=== PATIENT | female | born 1950 | race Caucasian/White ===

== ENCOUNTER 2021-12-26 06:30 | Day surgery (SDC) | payer MEDICARE, MEDICAID ==
[2021-12-21 14:18] LABS: CLARITY,URINE CLEAR (Clear); COLOR,URINE YELLOW (Yellow); GLUCOSE, URINE NEGATIVE (Neg); KETONES,URINE NEGATIVE (Neg); LEUKOCYTE ESTERASE ,URINE NEGATIVE (Neg); NITRITES, URINE NEGATIVE (Neg); OCCULT BLOOD,URINE NEGATIVE (Neg); PH,URINE 5.5 (4.8-8.0); PROTEIN,URINE NEGATIVE (Neg); UROBILINOGEN,URINE 0.2 E.U/dL (0.2-1.0)
[2021-12-21 14:19] LABS: BASOPHILS # (AUTO) 0.1 X10'3 (0-0.2); BASOPHILS % (AUTO) 0.9 % (0-1); EOSINOPHILS # (AUTO) 0.3 X10'3 (0-0.9); EOSINOPHILS % (AUTO) 3.9 % (0-6); LYMPHOCYTES # (AUTO) 1.6 X10'3 (1.1-4.8); LYMPHOCYTES % (AUTO) 24.7 % (21-51); MEAN CORPUSCULAR HEMOGLOBIN 29.5 PG (27.0-31.0); MEAN CORPUSCULAR HGB CONC 34.1 g/dL (33.0-36.5); MEAN CORPUSCULAR VOLUME 86.8 FL (78-98); MEAN PLATELET VOLUME 8.8 FL (7.4-10.4); MONOCYTES % (AUTO) 15.8 % (2-12); NEUTROPHILS # (AUTO) 3.6 X10'3 (1.8-7.7); NEUTROPHILS % (AUTO) 54.7 % (42-75); PRE OP HEMATOCRIT 44.3 % (35.0-45.0); PRE OP HEMOGLOBIN 15.1 g/dL (12.0-16.0); PRE OP PLATELET COUNT 207 X10'3 (140-440); RED BLOOD COUNT 5.11 X10'6 (4.20-5.60); RED CELL DISTRIBUTION WIDTH 14.1 % (11.5-14.5)
[2021-12-21 14:39] LABS: ALBUMIN 3.6 G/DL (3.4-5.0); ALBUMIN/GLOBULIN RATIO 1.1 (1.1-1.5); ALKALINE PHOSPHATASE 87 IU/L (46-116); BLOOD UREA NITROGEN 15 MG/DL (7-18); BUN/CREATININE RATIO 16.1 (6.6-38.0); CALCIUM 9.3 MG/DL (8.5-10.1); CHLORIDE 93 MMOL/L (99-107); CREATININE 0.93 MG/DL (0.40-0.90); PRE OP ALT 19 U/L (30-65); PRE OP ANION GAP 6 (8-16); PRE OP AST 22 U/L (10-37); PRE OP BILIRUB, TOTAL 0.7 MG/DL (0.0-1.0); PRE OP GLUCOSE 98 MG/DL (70-104); PRE OP POTASSIUM 4.5 MMOL/L (3.4-5.1); TOTAL CARBON DIOXIDE 30.4 MMOL/L (24-32); eGFR 59 ML/MIN
[2021-12-21 14:42] LABS: PRE OP SODIUM 129 MMOL/L (135-145)
[2021-12-21 14:49] LABS: UA COLLECTION TYPE CLN CATCH MIDSTREAM
[~2021-12-26] VITALS: Ht 172.7 cm; Wt 86.9 kg
[~2021-12-26 06:30] MED LIST: ALBU8HFA PO; AMLO2.5T2 PO; ASPI-1265 PO; CHOL10006 PO; FLUT1BLS4 PO; HYDR12.55 PO; IBUP-24 PO; LEVO100T PO; NAPR220T67 PO; OMEP40CA21 PO; albuterol 2.5 MG/3 ML nebule NEB ONE; ceFAZolin inj. 2,000 MG in dextrose 5%-water 100 ML IV ONE; famotidine 20mg tablet PO ONE; ringers solution, lacted 1,000 ML IV SCH; vancomycin 1,500 MG in NS 300ml IV soln IV ONE
[2021-12-26 07:43] LABS: ISTAT CREATININE 0.8 mg/dL (0.6-1.1); ISTAT IONIZED CALCIUM 1.23 mmol/L (1.03-1.32); ISTAT K 4.2 mmol/L (3.5-5.1); POC BUN/CREATININE RATIO 26.3 (6.6-38.0)
[2021-12-26 08:18] VITALS: BP 134/67
[2021-12-26] MEDS ORDERED: vancomycin 1,000mg inj ONE (08:19)
[2021-12-26 08:20] VITALS: BP 134/67
[2021-12-26 08:21] VITALS: BP 134/67
[2021-12-26] MEDS ORDERED: tetracaine 1% (10mg/ml) pres. free inj. ONE (08:22)
[2021-12-26] MEDS ORDERED: MIDAZolam 1mg/ml 10ml vial ONE (08:24)
[2021-12-26] MEDS ORDERED: ringers solution, lacted 1,000 ML IV SCH (08:30)
[2021-12-26] MEDS ORDERED: fentaNYL/PF 50MCG/1 ML 2ML syringe IV PRN ×2 (08:30)
[2021-12-26] MEDS ORDERED: labetalol 20mg/4ml (5mg/ml) syringe IV PRN (08:30)
[2021-12-26] MEDS ORDERED: hydrALAZINE 20mg/ml inj. IV PRN (08:30)
[2021-12-26] MEDS ORDERED: morphine 2 MG/ML inj. syringe IV PRN (08:30)
[2021-12-26] MEDS ORDERED: ondansetron/PF 4mg/2ml inj IV PRN (08:30)
[2021-12-26] MEDS ORDERED: morphine 4 MG/ML inj SYRINge IV PRN (08:30)
--- NOTE | 2021-12-27 13:47 | NUR ---
ADDENDUM NOTE. MD MORRISSEY EXAMINED RASH TO BODY OF PATIENT AND CONCLUDED THAT IT WILL BE SAFER TO HOLD SURGERY AND GET RASH ASSESSED AND ADDRESSED FIRST. SURGERY CANCELLED PER . IV TAKEN OUT WITHOUT COMPLICATION AND PATIENT SENT HOME. Addendum: 12/27/21 at 1353 by Grupo Bob RN RN Amended: Links added.
== END 2021-12-26 09:00 | disposition home or self-care (01) ==
LOC: PAS 06:30 → PAS IN 06:30 → UNDOADMIN 06:30 → EDSTATUS 08:30 → UNDODISIN 09:00 → PAS 09:00
PROVIDERS: ATTEND Orthopaedic Surgery
DX: M16.11 Unilateral primary osteoarthritis, right hip (principal); Z53.8 Procedure and treatment not carried out for other reasons; Z79.899 Other long term (current) drug therapy; J44.9 Chronic obstructive pulmonary disease, unspecified; I10 Essential (primary) hypertension; Z90.5 Acquired absence of kidney; Z98.890 Other specified postprocedural states
CPT/HCPCS: 36415; 80047; 80053; 81003; 82948; 84443; 85025; 86885; 86900; 86901; 87081; J0690; J2250; J3370; J3490; J7040; J7060; J7120

== ENCOUNTER 2022-08-07 05:34 | Inpatient (IN) | payer MEDICARE, MEDICAID ==
[2022-07-29 12:31] LABS: BASOPHILS # (AUTO) 0.1 X10'3 (0-0.2); BASOPHILS % (AUTO) 1.1 % (0-1); EOSINOPHILS # (AUTO) 0.2 X10'3 (0-0.9); EOSINOPHILS % (AUTO) 2.6 % (0-6); LYMPHOCYTES # (AUTO) 1.9 X10'3 (1.1-4.8); LYMPHOCYTES % (AUTO) 29.4 % (21-51); MEAN CORPUSCULAR HEMOGLOBIN 29.7 PG (27.0-31.0); MEAN CORPUSCULAR HGB CONC 33.5 g/dL (33.0-36.5); MEAN CORPUSCULAR VOLUME 88.6 FL (78-98); MONOCYTES # (AUTO) 0.7 X10'3 (0-0.9); MONOCYTES % (AUTO) 11.2 % (2-12); NEUTROPHILS # (AUTO) 3.6 X10'3 (1.8-7.7); NEUTROPHILS % (AUTO) 55.7 % (42-75); PRE OP HEMATOCRIT 47.9 % (35.0-45.0); PRE OP HEMOGLOBIN 16.1 g/dL (12.0-16.0); PRE OP PLATELET COUNT 181 X10'3 (140-440); RED BLOOD COUNT 5.41 X10'6 (4.20-5.60); RED CELL DISTRIBUTION WIDTH 14.2 % (11.5-14.5)
[2022-07-29 12:40] LABS: CLARITY,URINE CLEAR (Clear); COLOR,URINE YELLOW (Yellow); GLUCOSE, URINE NEGATIVE (Neg); KETONES,URINE NEGATIVE (Neg); LEUKOCYTE ESTERASE ,URINE NEGATIVE (Neg); NITRITES, URINE NEGATIVE (Neg); OCCULT BLOOD,URINE NEGATIVE (Neg); PROTEIN,URINE NEGATIVE (Neg); UROBILINOGEN,URINE 0.2 E.U/dL (0.2-1.0)
[2022-07-29 12:42] LABS: UA COLLECTION TYPE CLN CATCH MIDSTREAM
[2022-07-29 12:56] LABS: ALBUMIN 3.7 G/DL (3.4-5.0); ALBUMIN/GLOBULIN RATIO 1.1 (1.1-1.5); ALKALINE PHOSPHATASE 94 IU/L (46-116); BLOOD UREA NITROGEN 17 MG/DL (7-18); CALCIUM 9.6 MG/DL (8.5-10.1); CHLORIDE 98 MMOL/L (99-107); CREATININE 0.81 MG/DL (0.40-0.90); PRE OP ALT 14 U/L (30-65); PRE OP ANION GAP 6 (8-16); PRE OP AST 17 U/L (10-37); PRE OP BILIRUB, TOTAL 0.5 MG/DL (0.0-1.0); PRE OP GLUCOSE 98 MG/DL (70-104); PRE OP POTASSIUM 4.5 MMOL/L (3.4-5.1); PRE OP SODIUM 132 MMOL/L (135-145); TOTAL CARBON DIOXIDE 28.1 MMOL/L (24-32); TOTAL PROTEIN 7.2 G/DL (6.4-8.2); eGFR 70 ML/MIN
[~2022-08-07] VITALS: Ht 172.7 cm; Wt 81.7 kg
[2022-08-07] VITALS (21 sets, daily range): BP systolic 125–176; BP diastolic 65–87
[~2022-08-07 05:34] MED LIST changes: +ACET-1025 PO; -AMLO2.5T2 PO; +FAMO20TA8 PO; -HYDR12.55 PO; -IBUP-24 PO; -LEVO100T PO; +LEVO25TA7 PO; +OLME20TA23 PO; -OMEP40CA21 PO; -ceFAZolin inj. 2,000 MG in dextrose 5%-water 100 ML IV ONE; +cefazolin 2gm/D5W 100mL 100 ML IV ONE
[2022-08-07] MEDS ORDERED: tranexamic acid inj. 1,000 MG in normal saline 100ml IV soln 90 ML IV ONE (06:20)
[2022-08-07] MEDS ORDERED: propofol inj 20 ML IV ONE (07:33)
[2022-08-07] MEDS ORDERED: midazolam 1 mg/ML 2ml injection ONE (07:33)
[2022-08-07] MEDS ORDERED: fentaNYL /PF 50mcg/ml 5ml ampule ONE (07:33)
[2022-08-07] MEDS ORDERED: rocuronium 10mg/ml inj IV ONE (07:33)
[2022-08-07] MEDS ORDERED: vancomycin 1,000mg inj ONE (07:34)
[2022-08-07] MEDS ORDERED: meperidine/PF 25mg/ml syringe IV PRN ×3 (07:40)
[2022-08-07] MEDS ORDERED: morphine 4 MG/ML inj SYRINge IV PRN (07:40)
[2022-08-07] MEDS ORDERED: morphine 2 MG/ML inj. syringe IV PRN (07:40)
[2022-08-07] MEDS ORDERED: ringers solution, lacted 1,000 ML IV SCH (07:40)
[2022-08-07] MEDS ORDERED: ondansetron/PF 4mg/2ml inj IV PRN ×2 (07:40→11:10)
[2022-08-07] MEDS ORDERED: proCHLORperazine 10 MG/2 ml inj IV PRN (07:40)
[2022-08-07] MEDS ORDERED: sevoflurane 250ml liquid IH ONE (07:52)
[2022-08-07] MEDS ORDERED: ondansetron/PF 4mg/2ml inj ONE (10:21)
[2022-08-07] MEDS ORDERED: dexamethasone sod phosphate 4mg/ml inj. ONE (10:21)
[2022-08-07] MEDS ORDERED: acetaminophen 1,000mg/100ml IV 100 ML IV ONE (10:23)
--- NOTE | 2022-08-07 11:00 | NUR ---
Received from OR via HOSPITAL BED, accompanied by Anesthesiologist DR GONZALEZ and report given by Anesthesiologist. PT IS GROGGY, RESPONDS TO VERBAL STIMULI. PT PLACED ON BEDSIDE MONITOR, VSS. PT IS IN SR WITH RATE IN 90'S. PT IS RECEIVING 10L O2 TO MASK AND TOLERATING WELL, O2 SAT > 95%, WILL TITRATE DOWN AT PT TOLERATES. PT HAS 20G PIV TO RT HAND WITH LR INFUSING ORDERED. PT HAS DRSG TO RT HIP THAT IS CDI, LEG WRAP IS IN PLACE WITH POWDER ICE PACK. PT HAS BILAT PALPABLE DORSALIS PEDIS PULSES PRESENT. PT DID NOT RECEIVE SPINAL AND IS ABLE TO WIGGLE TOES. PT DENIES PAIN AT THIS TIME. WILL CONTINUE TO ASSESS.
[2022-08-07] MEDS ORDERED: bisacodyl 10mg suppository rectal RC PRN (11:10)
[2022-08-07] MEDS ORDERED: acetaminophen 325mg tablet PO PRN (11:10)
[2022-08-07] MEDS ORDERED: magnesium hydroxide 30ml (MOM) UD suspension PO PRN (11:10)
[2022-08-07] MEDS ORDERED: oxyCODONE IR 5mg (immed. release) tablet PO PRN (11:10)
[2022-08-07] MEDS ORDERED: HYDROmorphone inj. 0.5 MG/0.5 ML DISP.SYRIN IV PRN (11:10)
[2022-08-07] MEDS ORDERED: HYDROmorphone 1 mg/ml syringe IV PRN (11:10)
[2022-08-07] MEDS ORDERED: diphenhydrAMINE 25mg capsule PO PRN ×2 (11:10)
[2022-08-07] MEDS ORDERED: naloxone 0.4 mg/ml inj IV PRN (11:10)
--- NOTE | 2022-08-07 12:47 | NUR ---
PATIENT HAS MET ALL CRITERIA FOR TRANSFER TO THE ORTHO FLOOR. VSS. DRESSINGS INTACT. BED LOW, CALL LIGHT PRESENT AND 2 RAILS UP. NURSE PRESENT TO ACCEPT CARE OF PATIENT AND REPORT HAS BEEN CALLED TO NANCY NEW. ALL QUESTIONS ANSWERED TO ACCEPTING RN.
[2022-08-07] MEDS: oxyCODONE IR 5mg (immed. release) tablet PO PRN (13:35)
[2022-08-07] MEDS: acetaminophen 325mg tablet PO SCH ×2 (13:35→20:22)
[2022-08-07] MEDS: gabapentin 300mg capsule PO SCH ×2 (13:35→20:22)
[2022-08-07] MEDS ORDERED: tranexamic acid inj. 820 MG in normal saline 100ml IV soln 91.8 ML IV ONE (14:00)
[2022-08-07] MEDS: potassium Cl 20mEq in NS 1,000 ML IV SCH ×2 (14:45→22:00)
[2022-08-07] MEDS: ceFAZolin/D5W- 1GM premix 50 ML IV SCH ×2 (15:45→23:46)
--- NOTE | 2022-08-07 17:00 | NUR ---
I have reviewed and agree with interventions, assessments, and documentation by Kalpana Vaughn LVN.
--- NOTE | 2022-08-07 18:40 | NUR ---
Patient in room ORTHO 4013. I have received report from Kalani NEW and had the opportunity to ask questions and assume patient care.
[2022-08-07] MEDS ORDERED: vancomycin/NS 1 GM ADD-VANTAGE 250 ML IV SCH (20:00)
[2022-08-07] MEDS: sennosides 8.6mg tablet PO SCH (20:23)
--- NOTE | 2022-08-07 20:30 | NUR ---
I agree with VP [employer] physical assessment except what I documented.
[2022-08-08] MEDS: potassium Cl 20mEq in NS 1,000 ML IV SCH (01:04)
[2022-08-08 01:59] VITALS: BP 118/57
[2022-08-08] MEDS: acetaminophen 325mg tablet PO SCH ×4 (02:05→19:52)
[2022-08-08 06:00] VITALS: BP 131/70
--- NOTE | 2022-08-08 06:17 | NUR ---
Problems reprioritized. Patient report given, questions answered & plan of care reviewed with VIRGEN Marrero.
--- NOTE | 2022-08-08 06:20 | NUR ---
Patient in room ORTHO 4013. I have received report from Edilma NEW and had the opportunity to ask questions and assume patient care.
[2022-08-08] MEDS: enoxaparin 40mg/0.4ml syringe SQ SCH (08:17)
[2022-08-08] MEDS: gabapentin 300mg capsule PO SCH (08:17)
[2022-08-08 10:00] VITALS: BP 126/79
[2022-08-08] MEDS ORDERED: levoTHYROXINE 25mcg tablet PO ONE (11:28)
--- NOTE | 2022-08-08 11:42 | NUR ---
Joint surgery consult: Pt s/p arthroplasty right hip this admit per EMR. Pt seen by K[employer] project internship for written/verbal high protein diet ed with RD contact information provided. [employer] project internship encouraged pt to contact dietitians's office for further nutrition questions/concern. Addendum: 08/08/22 at [address] Amended: Links added. Addendum: 08/08/22 at [address] KOREY has reviewed and approves of above note.
[2022-08-08] MEDS: gabapentin 100mg capsule PO SCH ×2 (14:03→19:51)
--- NOTE | 2022-08-08 16:43 | NUR ---
MASTER MACHINIST documentation: I have reviewed and agree with all interventions, assessments performed and documented by Becka Ibarra LVN.
[2022-08-08 18:00] VITALS: BP 113/63
--- NOTE | 2022-08-08 18:17 | NUR ---
Problems reprioritized. Patient report given, questions answered & plan of care reviewed with Lady ESCOTO.
[2022-08-08] MEDS: sennosides 8.6mg tablet PO SCH (19:41)
[2022-08-08] MEDS: celeCOXIB 100mg capsule PO SCH (19:52)
[2022-08-08 22:00] VITALS: BP 130/59
[2022-08-09] MEDS: acetaminophen 325mg tablet PO SCH ×2 (02:00→09:00)
[2022-08-09 06:00] VITALS: BP 137/71
--- NOTE | 2022-08-09 06:17 | NUR ---
Problems reprioritized. Patient report given, questions answered & plan of care reviewed with TIGIST Escobar.
--- NOTE | 2022-08-09 06:50 | NUR ---
Patient in room ORTHO 4013. I have received report from TIGIST Narayanan and had the opportunity to ask questions and assume patient care.
[2022-08-09 07:09] LABS: BASOPHILS % (AUTO) 0.4 % (0-1); EOSINOPHILS # (AUTO) 0.2 X10'3 (0-0.9); EOSINOPHILS % (AUTO) 2.2 % (0-6); HEMATOCRIT 36.7 % (35.0-45.0); LYMPHOCYTES # (AUTO) 2.3 X10'3 (1.1-4.8); LYMPHOCYTES % (AUTO) 26.9 % (21-51); MEAN CORPUSCULAR HEMOGLOBIN 29.1 PG (27.0-31.0); MEAN CORPUSCULAR HGB CONC 32.5 g/dL (33.0-36.5); MEAN CORPUSCULAR VOLUME 89.5 FL (78-98); MEAN PLATELET VOLUME 9.4 FL (7.4-10.4); MONOCYTES # (AUTO) 1.4 X10'3 (0-0.9); MONOCYTES % (AUTO) 16.3 % (2-12); NEUTROPHILS # (AUTO) 4.7 X10'3 (1.8-7.7); NEUTROPHILS % (AUTO) 54.2 % (42-75); PLATELET COUNT 142 X10'3 (140-440); RED BLOOD COUNT 4.11 X10'6 (4.20-5.60); RED CELL DISTRIBUTION WIDTH 14.1 % (11.5-14.5); WHITE BLOOD COUNT 8.7 X10'3 (4.5-11.0)
[2022-08-09 07:28] LABS: ALANINE AMINOTRANSFERASE 11 U/L (12-78); ALBUMIN 2.6 G/DL (3.4-5.0); ALBUMIN/GLOBULIN RATIO 0.9 (1.1-1.5); ALKALINE PHOSPHATASE 64 IU/L (46-116); ANION GAP 8 (8-16); ASPARTATE AMINO TRANSFERASE 19 U/L (10-37); BILIRUBIN,TOTAL 0.5 MG/DL (0.1-1.0); BLOOD UREA NITROGEN 22 MG/DL (7-18); BUN/CREATININE RATIO 25.6 (10.0-20.0); CALCIUM 8.5 MG/DL (8.5-10.1); CHLORIDE 102 MMOL/L (99-107); CREATININE 0.86 MG/DL (0.40-0.90); GLUCOSE 93 MG/DL (70-104); POTASSIUM 4.5 MMOL/L (3.5-5.1); SODIUM 136 MMOL/L (135-145); TOTAL CARBON DIOXIDE 26.4 MMOL/L (24-32); TOTAL PROTEIN 5.5 G/DL (6.4-8.2); eGFR 65 ML/MIN
[2022-08-09] MEDS: Fluticasone/Umeclidin/Vilanter (Trelegy Ellipta 100-62.5-25) PO SCH (08:00)
[2022-08-09] MEDS: levoTHYROXINE 25mcg tablet PO SCH (08:58)
[2022-08-09] MEDS: celeCOXIB 100mg capsule PO SCH ×2 (08:59→20:45)
[2022-08-09] MEDS: famotidine 20mg tablet PO SCH (08:59)
[2022-08-09] MEDS: gabapentin 100mg capsule PO SCH ×3 (08:59→20:45)
[2022-08-09] MEDS: losartan 50mg tablet PO SCH (09:00)
[2022-08-09] MEDS: enoxaparin 40mg/0.4ml syringe SQ SCH (09:01)
[2022-08-09] MEDS: cholecalciferol (vitamin D3) 1,000 unit (25mcg) tablet PO SCH (09:01)
[2022-08-09 10:00] VITALS: BP 160/68
[2022-08-09] MEDS ORDERED: acetaminophen 325mg tablet PO PRN (11:10)
--- NOTE | 2022-08-09 16:09 | NUR ---
Per Dr. Wilder patient may have paresis of a nerve and that is why the numbness on the right leg. Will continue to monitor. Patient scheduled to get transferred to [facility] tomorrow 08/10/22. Discharging nurse must call Dr. Wilder to OK the transfer.
[2022-08-09 18:00] VITALS: BP 133/67
--- NOTE | 2022-08-09 18:20 | NUR ---
Problems reprioritized. Patient report given, questions answered & plan of care reviewed with VIRGEN [place].
--- NOTE | 2022-08-09 18:33 | NUR ---
Patient in room ORTHO 4013. I have received report from TIGIST Trent and had the opportunity to ask questions and assume patient care.
--- NOTE | 2022-08-09 20:00 | NUR ---
Agree with Edilma NEW physical assessment except where I documented my findings. She is able to move the right leg but not bend it. She has numbness to the inner right leg starting at upper thigh down the leg into the toes on right foot. Dr. Wilder is aware of findings.
[2022-08-09] MEDS: sennosides 8.6mg tablet PO SCH (20:44)
[2022-08-09 22:00] VITALS: BP 156/72
[2022-08-10] MEDS: oxyCODONE IR 5mg (immed. release) tablet PO PRN (05:57)
[2022-08-10 06:00] VITALS: BP 154/72
--- NOTE | 2022-08-10 06:18 | NUR ---
Problems reprioritized. Patient report given, questions answered & plan of care reviewed with VIRGEN Young.
[2022-08-10 06:42] LABS: BASOPHILS % (AUTO) 0.4 % (0-1); EOSINOPHILS # (AUTO) 0.2 X10'3 (0-0.9); EOSINOPHILS % (AUTO) 3.3 % (0-6); HEMOGLOBIN 12.1 g/dl (12.0-16.0); LYMPHOCYTES % (AUTO) 27.3 % (21-51); MEAN CORPUSCULAR HEMOGLOBIN 29.9 PG (27.0-31.0); MEAN CORPUSCULAR HGB CONC 33.6 g/dL (33.0-36.5); MEAN PLATELET VOLUME 9.4 FL (7.4-10.4); MONOCYTES # (AUTO) 1.2 X10'3 (0-0.9); MONOCYTES % (AUTO) 17.2 % (2-12); NEUTROPHILS # (AUTO) 3.7 X10'3 (1.8-7.7); NEUTROPHILS % (AUTO) 51.8 % (42-75); PLATELET COUNT 140 X10'3 (140-440); RED BLOOD COUNT 4.05 X10'6 (4.20-5.60); RED CELL DISTRIBUTION WIDTH 14.6 % (11.5-14.5); WHITE BLOOD COUNT 7.2 X10'3 (4.5-11.0)
--- NOTE | 2022-08-10 06:43 | NUR ---
Patient in room ORTHO 4013. I have received report from VIRGEN [place] and had the opportunity to ask questions and assume patient care.
[2022-08-10 07:19] LABS: ALANINE AMINOTRANSFERASE 17 U/L (12-78); ALBUMIN 2.5 G/DL (3.4-5.0); ALBUMIN/GLOBULIN RATIO 0.8 (1.1-1.5); ALKALINE PHOSPHATASE 66 IU/L (46-116); ANION GAP 7 (8-16); ASPARTATE AMINO TRANSFERASE 25 U/L (10-37); BILIRUBIN,TOTAL 0.6 MG/DL (0.1-1.0); BLOOD UREA NITROGEN 21 MG/DL (7-18); BUN/CREATININE RATIO 26.6 (10.0-20.0); CALCIUM 8.9 MG/DL (8.5-10.1); CHLORIDE 100 MMOL/L (99-107); CREATININE 0.79 MG/DL (0.40-0.90); GLUCOSE 88 MG/DL (70-104); POTASSIUM 4.6 MMOL/L (3.5-5.1); SODIUM 136 MMOL/L (135-145); TOTAL CARBON DIOXIDE 29.4 MMOL/L (24-32); TOTAL PROTEIN 5.6 G/DL (6.4-8.2); eGFR 72 ML/MIN
[2022-08-10] MEDS: Fluticasone/Umeclidin/Vilanter (Trelegy Ellipta 100-62.5-25) PO SCH (08:00)
[2022-08-10] MEDS: celeCOXIB 100mg capsule PO SCH (08:09)
[2022-08-10] MEDS: cholecalciferol (vitamin D3) 1,000 unit (25mcg) tablet PO SCH (08:10)
[2022-08-10] MEDS: losartan 50mg tablet PO SCH (08:10)
[2022-08-10] MEDS: gabapentin 100mg capsule PO SCH (08:11)
[2022-08-10] MEDS: levoTHYROXINE 25mcg tablet PO SCH (08:11)
[2022-08-10] MEDS: famotidine 20mg tablet PO SCH (08:12)
[2022-08-10] MEDS: enoxaparin 40mg/0.4ml syringe SQ SCH (08:12)
[2022-08-10 08:31] LABS: PLATELET ESTIMATE NORMAL; TOTAL CELLS COUNTED 100
--- NOTE | 2022-08-10 09:01 | NUR ---
Per physical therapy patient ok to go to SNF today. Called MD who approved transfer as well. Awaiting pickup at [id number]
[2022-08-10 11:00] VITALS: BP 120/55
--- NOTE | 2022-08-10 12:37 | NUR ---
Patient stable and appropriate for transfer to [facility]. Report called to receiving nurse Paradise. All belongings sent with patient. IV removed canula intact. Patient taken via [facility].
== END 2022-08-10 12:20 | DRG 470 ==
LOC: PAS IN 05:34 → UNDOADMIN 05:34 → PAS IN 11:28 → ORTHO 4S 12:20
PROVIDERS: ADMIT Orthopaedic Surgery; ATTEND Orthopaedic Surgery
PROC: 0SR901A Replacement of Right Hip Joint with Metal Synthetic Substitute, Uncemented, Open Approach (ICD-10-PCS; principal; 2022-08-07 07:52)
DX: M16.11 Unilateral primary osteoarthritis, right hip (principal)
CPT/HCPCS: 36415; 71046; 72170; 73501; 80053; 81003; 82948; 84443; 85007; 85025; 86885; 86900; 86901; 87081; 93005; 94640; 94760; 97110; 97116; 97161; 97530; 97535; A4215; A4615; A4618; A6258; A6449; A7000; C1776; C9250; G0378; J0131; J0690; J1100; J1650; J2175; J2250; J2405; J2704; J3010; J3370; J3480; J3490; J7120

== ENCOUNTER 2024-11-11 12:34 | Outpatient (CLI) | payer MEDICARE, MEDICAID ==
[2024-11-10 15:23] LABS: CREATININE 0.99 MG/DL (0.40-0.90); TOTAL CARBON DIOXIDE 32.6 MMOL/L (24-32); eGFR 55 ML/MIN
[~2024-11-11 12:34] MED LIST changes: +APIX5TAB3 PO; -ASPI-1265 PO; +CEFD300C3 PO; +DUPI300P; +FURO40TA4 PO; +LACT1CAP60 PO; +LOSA50TA64 PO; +METO-395 PO; -NAPR220T67 PO; -OLME20TA23 PO; +SODI1TAB2 PO; -albuterol 2.5 MG/3 ML nebule NEB ONE; -cefazolin 2gm/D5W 100mL 100 ML IV ONE; -famotidine 20mg tablet PO ONE; -ringers solution, lacted 1,000 ML IV SCH; -vancomycin 1,500 MG in NS 300ml IV soln IV ONE
--- NOTE | 2024-11-11 15:01 | RADIOLOGY REPORT ---
CT CTA CAROTIDS/VERTEBRALS INDICATION: OCCLUSION AND STENOSIS OF BILATERAL CAROTID ARTERIES TECHNIQUE: CT angiography along with MIP and MPR images were obtained of the cervical carotid and vertebral arteries. All CT scans at this facility use dose modulation, iterative reconstruction, and/or weight based dosing when appropriate to reduce radiation dose to as low as reasonably achievable. 3-D postprocessing was performed on a separate workstation under radiologist supervision. IV CONTRAST: 100 mL of low osmolar intravenous iodinated contrast material was administered. COMPARISON: None FINDINGS: CERVICAL VESSELS: 50-75 percent stenosis of the right proximal internal carotid artery beyond the right carotid bulb. Normal distal contrast flow. Limited evaluation of the right proximal common carotid artery secondary to streak artifact Otherwise, aortic arch appears patent with scattered areas of mixed atherosclerotic plaque along the origins. Left vertebral artery is dominant. Bilateral vertebral arteries are patent with right vertebral artery predominantly terminating into the right posterior inferior cerebellar artery. Mixed atherosclerotic plaque of the left proximal internal carotid artery. OTHER: Severe centrilobular emphysema. Benign-appearing less than 15 mm hypoattenuating thyroid nodules IMPRESSION: 1. 50-75 percent stenosis of the right proximal internal carotid artery beyond the right carotid bulb. Normal distal contrast flow. 2. No high-grade areas of stenosis of the cervical vessels.
== END 2024-11-11 23:59 | disposition home or self-care (01) ==
LOC: RAD 12:34
PROVIDERS: ATTEND Internal Medicine Interventional Cardiology
DX: I65.23 Occlusion and stenosis of bilateral carotid arteries (principal); E78.5 Hyperlipidemia, unspecified; J43.2 Centrilobular emphysema; E04.2 Nontoxic multinodular goiter
CPT/HCPCS: 36415; 70498; 80048; Q9967